=== PATIENT | female | born 1945 | race Caucasian/White ===

== ENCOUNTER 2018-07-14 18:52 | Inpatient (IN) ==
--- NOTE | 2018-07-14 19:43 | Diag Imaging Result Doc PS360 ---
CHEST-2 VIEWS - 07/14/2018 INDICATION: CP COMPARISON: None FINDINGS: The lungs are normally expanded and clear. Heart size and mediastinal contours are normal. No pneumothorax or pleural effusion. IMPRESSION: Negative exam. Electronically signed by Dusty Zaragoza 07/14/2018 7:40 PM
[2018-07-14 20:09] LABS: BASO# 0.05 X1000 (0.0-0.2); BASO% 0.4 % (0.0-0.8); EOS# 0.96 X1000 (0.0-0.7); EOS% 7.9 % (0.0-10.0); HEMATOCRIT 42.2 % (37.0-47.0); HEMOGLOBIN 13.4 g/dL (12.0-16.0); IMM GRAN# 0.03 X1000 (0.0-0.04); IMM GRAN% 0.2 % (0.0-0.5); INR 0.9; LYMPH# 1.91 X1000 (1.2-3.4); LYMPH% 15.8 % (20.5-51.1); MCH 28.3 PG (27-31); MCHC 31.8 g/dL (33-37); MONO# 0.77 X1000 (0.11-0.59); MONO% 6.4 % (1.7-9.3); MPV 10.7 FL (7.4-10.4); NEUT# 8.37 X1000 (1.4-6.5); NEUT% 69.3 % (42.2-75.2); PLT 307 X1000 (130-400); PROTIME 12.9 Seconds (11.0-16.0); RBC 4.74 XMIL (4.2-5.4); RDW 14.1 % (11.5-14.5); WBC 12.09 X1000 (4.8-10.8)
[2018-07-14 20:10] LABS: PTT 25.6 Seconds (22.3-41.8)
[2018-07-14] MEDS ORDERED: LABETALOL IV ONE (20:22)
[2018-07-14 20:24] LABS: AGAP 9; ALB/GLOB RATIO 1.8; ALBUMIN 3.9 g/dL (3.5-5.0); ALKALINE PHOSPHATASE 86 U/L (32-104); BUN 17 mg/dL (8-22); CALCIUM 9.8 mg/dL (8.8-10.2); CHLORIDE 104 mmol/L (98-107); CK PROFILE 27 U/L (24-173); COSMO 293; CREATININE 0.8 mg/dL (0.5-0.9); ESTIMATED GFR > 60; GLUCOSE 179 mg/dL (70-104); GOT 12 U/L (10-30); GPT 14 U/L (10-36); POTASSIUM 4.3 mmol/L (3.5-5.1); SODIUM 144 mmol/L (136-145); TCO2 31 mmol/L (25-35); TOTAL BILIRUBIN < 0.15 mg/dL (0.20-1.00); TOTAL PROTEIN 6.1 g/dL (6.3-8.3)
[2018-07-14] MEDS ORDERED: ZOFRAN IV ONE (20:25)
[2018-07-14] MEDS ORDERED: BREVIBLOC 2.5 GM/NS 2.5 GM/250 ML IV.SOLN IV SCH (20:45)
--- NOTE | 2018-07-14 21:30 | Diag Imaging Result Doc PS360 ---
CT ANGIOGRAM THORAX/ABD/PELVIS - 07/14/2018 INDICATION: rule out aortic dissection TECHNIQUE: Axial CT images were obtained after administering intravenous contrast. Three-dimensional angiographic images were generated. COMPARISON: None FINDINGS: The aorta is normal. The heart is normal in size and contour. There is a nodule in the right lobe of the thyroid measuring 1.5 cm. No adenopathy. The lungs are clear of infiltrate. There is a benign granuloma in the right lower lobe. Abdominal organs are all normal. Bones are intact. No bowel obstruction or inflammation. Normal appendix. Urinary bladder and rectum are normal. IMPRESSION: Negative exam. This exam was performed using automated exposure control, adjustment of mA or kV according to patient size, and/or use of iterative reconstruction technique Electronically signed by Dusty Zaragoza 07/14/2018 9:27 PM
[2018-07-14] MEDS ORDERED: NITROGLYCERIN TOP ONE ×2 (21:54→22:22)
[2018-07-14] MEDS ORDERED: VASOTEC IV ONE (22:30)
--- NOTE | 2018-07-14 22:57 | PROVIDER DOCUMENTATION ---
This chart was entered by Flavia Bedoya Scribe, acting as scribe for Zamzam Watts MD. HPI-Chest Pain - General Chief Complaint: Chest Pain Stated Complaint: PRESSURE IN CHEST, PAIN (L) ARM, NAUSEA Time Seen by Provider: 07/14/18 19:52 Source: patient Allergies/Adverse Reactions: Patient Allergies Allergy/AdvReac Type Severity Reaction Status Date / Time codeine Allergy NAUSEA/VOMI Verified 07/14/18 20:42 TING Home Medications: Home Medication List Medication Instructions Recorded Confirmed Last Taken Type Cholestyramine (with Sugar) 4 gm PO DAILY 07/14/18 07/14/18 Unknown History [Cholestyramine Packet] Clobetasol Propionate/Emoll 45 gm TOPICAL BID 07/14/18 07/14/18 Unknown History [Clobetasol Emollient 0.05% Crm] Glipizide 5 mg PO BID 07/14/18 07/14/18 Unknown History Metformin HCl [Fortamet] 1,000 mg PO DAILY 07/14/18 07/14/18 Unknown History Ropinirole HCl 1 mg PO DAILY 07/14/18 07/14/18 Unknown History Solifenacin Succinate [Vesicare] 5 mg PO DAILY 07/14/18 07/14/18 Unknown History - History of Present Illness-CP Nature of Presenting Problem: 73 yof presents to er w/co cp on and off for few months but constant today, substernal, pressure like, radiate to the back, 12/17, associated with sob, sweating and nausea for few days. pt denies vomiting and diarrhea. pt has hx of dm. Location: reports: substernal Review of Systems - Adult - REVIEW OF SYSTEMS - ADULT Constitutional: reports: no symptoms reported Eyes: reports: no symptoms reported Ears, Nose, Mouth & Throat: reports: no symptoms reported Cardiovascular: reports: see HPI, chest pain (substernal). denies: palpitations, poor circulation, syncope Respiratory: reports: see HPI, shortness of breath. denies: dyspnea on exertion, excessive sputum production, hemoptysis Gastrointestinal: reports: see HPI, nausea. denies: diarrhea, difficulty swallowing, vomiting Genitourinary: reports: no symptoms reported Musculoskeletal: reports: no symptoms reported Integumentary: reports: no symptoms reported Neurological: reports: no symptoms reported Psychiatric: reports: no symptoms reported Endocrine: reports: see HPI, excessive sweating. denies: change in skin pigment, increased thirst, polyuria Past History - Adult - PAST MEDICAL HISTORY-ADULT Review of Records: reports: Old Records Reviewed, Nursing Assessment Review, Medications Reviewed, Social history reviewed & non-contributory. Major Childhood Illnesses: reports: denies history Cardiovascular: reports: denies history Respiratory: reports: denies history Gastrointestinal: reports: denies history Obstetrical/Gynecological: reports: denies history Genitourinary: reports: denies history Musculoskeletal: reports: denies history Neurological: reports: denies history Endocrine/Immune: reports: Diabetes Diabetes Type: Type 2 Diabetes controlled by:: PO Meds (metformin) Other Conditions: reports: eczema - PRIOR SURGERIES/PROCEDURES Surgical/Procedure History: reports: breast (reduction) - IMMUNIZATION STATUS Childhood Immunizations: See Nurse Assessment Flu Vaccine: See Nurse Assessment - FAMILY HISTORY Family History: reviewed, not pertinent - SOCIAL HISTORY Smoking: non-smoker Substance Use: none/never Physical Exam-General - PHYSICAL EXAM-ADULT Initial Vital Signs Reviewed: Yes - CONSTITUTIONAL General Appearance: alert, no apparent distress - EYES Eyes: PERRL/EOMI - HEAD, EARS, NOSE, MOUTH & THROAT HENMT: normocephalic/atraumatic, moist mucous membranes, normal ENT inspection - NECK Neck: non-tender, full range of motion, supple, normal inspection - RESPIRATORY Respiratory: chest non-tender, lungs clear, normal breath sounds. negative: accessory muscle use, crackles, rales - CARDIOVASCULAR Cardiovascular: normal peripheral pulses, regular rate, rhythm, no edema, no gallop, no JVD, no murmur, other (Faint femoral pulse on the right side). negative: JVD, bradycardia, tachycardia - GASTROINTESTINAL (ABDOMEN) Abdominal Exam: normal bowel sounds, non tender, soft. negative: guarding, rigid, rebound - LYMPHATIC Lymphatic: no adenopathy - MUSCULOSKELETAL Back Exam: normal inspection, no CVA tenderness Extremity: normal range of motion, non-tender, normal inspection - SKIN Integumentary: normal color, normal turgor, warm/dry - NEUROLOGIC Neurologic: sign maker II-XII nml as tested, grossly normal, no motor/sensory deficits - PSYCHIATRIC Psych/Mental Status: normal mood/affect, normal thought content, normal thought process, oriented x 3 - HEART Score HEART Score: History: Highly Suspicious HEART Score: ECG: Normal HEART Score: Age: > or = 65 Years HEART Score: Risk Factors for Atherosclerotic Disease: > or = 3 Risk Factors or History of Atherosclerotic Disease HEART Score: Troponin: < or = Normal Limit (6) Total HEART Score:: 6 Progress - PLAN OF CARE/RESULTS Progress/Plan/Lab Results: Vital Signs - 8 hr 07/14/18 19:04 07/14/18 20:01 07/14/18 20:18 Temperature 97.9 F Pulse Rate 82 86 76 Respiratory Rate 18 18 15 Blood Pressure 214/98 227/115 276/138 O2 Sat by Pulse Oximetry 97 99 99 07/14/18 20:20 07/14/18 20:23 07/14/18 20:30 Temperature Pulse Rate 75 85 79 Respiratory Rate 19 18 14 Blood Pressure 225/109 O2 Sat by Pulse Oximetry 99 99 96 07/14/18 20:32 07/14/18 20:40 07/14/18 20:42 Temperature Pulse Rate 74 80 78 Respiratory Rate 19 24 18 Blood Pressure 206/83 190/80 O2 Sat by Pulse Oximetry 99 98 97 07/14/18 20:59 07/14/18 21:00 07/14/18 21:02 Temperature Pulse Rate 77 Respiratory Rate Blood Pressure 214/94 O2 Sat by Pulse Oximetry 92 L 96 97 07/14/18 21:07 07/14/18 21:10 07/14/18 21:14 Temperature Pulse Rate 80 78 78 Respiratory Rate 23 Blood Pressure 212/79 200/118 O2 Sat by Pulse Oximetry 95 97 99 07/14/18 21:17 07/14/18 21:20 07/14/18 21:24 Temperature Pulse Rate 78 76 74 Respiratory Rate 17 16 19 Blood Pressure 213/91 198/95 O2 Sat by Pulse Oximetry 97 97 07/14/18 21:25 07/14/18 21:30 07/14/18 21:32 Temperature Pulse Rate 90 76 73 Respiratory Rate 21 19 20 Blood Pressure 198/95 193/83 O2 Sat by Pulse Oximetry 97 96 96 07/14/18 21:40 07/14/18 21:47 07/14/18 21:50 Temperature Pulse Rate 74 76 82 Respiratory Rate 22 18 21 Blood Pressure 215/106 O2 Sat by Pulse Oximetry 100 97 98 07/14/18 21:53 07/14/18 21:58 07/14/18 22:00 Temperature Pulse Rate 74 75 74 Respiratory Rate 15 23 22 Blood Pressure 232/108 202/95 O2 Sat by Pulse Oximetry 97 98 99 07/14/18 22:02 07/14/18 22:10 07/14/18 22:17 Temperature Pulse Rate 72 70 74 Respiratory Rate 19 15 18 Blood Pressure 205/90 203/93 O2 Sat by Pulse Oximetry 98 97 97 07/14/18 22:20 07/14/18 22:30 07/14/18 22:32 Temperature Pulse Rate 75 78 74 Respiratory Rate 21 15 21 Blood Pressure 188/104 O2 Sat by Pulse Oximetry 97 97 98 07/14/18 22:40 07/14/18 22:47 Temperature Pulse Rate 81 75 Respiratory Rate 18 20 Blood Pressure 171/86 O2 Sat by Pulse Oximetry 97 99 Laboratory Results - last 24 hr 07/14/18 07/14/18 07/14/18 19:18 19:18 19:18 WBC 12.09 H RBC 4.74 Hgb 13.4 Hct 42.2 MCV 89.0 MCH 28.3 MCHC 31.8 L RDW Std Deviation 14.1 Plt Count 307 MPV 10.7 H Immature Gran % (Auto) 0.2 Neut % (Auto) 69.3 Lymph % (Auto) 15.8 L [place] % (Auto) 6.4 Eos % (Auto) 7.9 Baso % (Auto) 0.4 Immature Gran # (Auto) 0.03 Neut # (Auto) 8.37 H Lymph # (Auto) 1.91 [place] # (Auto) 0.77 H Eos # (Auto) 0.96 H Baso # (Auto) 0.05 PT INR PTT (Actin FS) Sodium 144 Potassium 4.3 Chloride 104 Carbon Dioxide 31 Anion Gap 9 BUN 17 Creatinine 0.8 Estimated GFR/1.73 m2 > 60 BUN/Creatinine Ratio 21 Glucose 179 H Calculated Osmolality 293 Calcium 9.8 Total Bilirubin < 0.15 L AST 12 ALT 14 Alkaline Phosphatase 86 Creatine Kinase 27 Troponin T Pnl-[id number]-Plltjmhjukb Pept 183 Total Protein 6.1 L Albumin 3.9 Globulin 2.2 Albumin/Globulin Ratio 1.8 07/14/18 07/14/18 19:18 19:18 WBC RBC Hgb Hct MCV MCH MCHC RDW Std Deviation Plt Count MPV Immature Gran % (Auto) Neut % (Auto) Lymph % (Auto) [place] % (Auto) Eos % (Auto) Baso % (Auto) Immature Gran # (Auto) Neut # (Auto) Lymph # (Auto) [place] # (Auto) Eos # (Auto) Baso # (Auto) PT 12.9 INR 0.90 PTT (Actin FS) 25.6 Sodium Potassium Chloride Carbon Dioxide Anion Gap BUN Creatinine Estimated GFR/1.73 m2 BUN/Creatinine Ratio Glucose Calculated Osmolality Calcium Total Bilirubin AST ALT Alkaline Phosphatase Creatine Kinase Troponin T < 0.010 Zee-Z-Husjbsfgjab Pept Total Protein Albumin Globulin Albumin/Globulin Ratio Orders Category Date Time Status Cardiac Monitoring DIRECTED Care 07/14/18 19:08 Active Oxygen Therapy- ED Nursing DIRECTED Care 07/14/18 19:08 Active Saline Loc NOW Care 07/14/18 19:08 Active CHEST-2 VIEWS [RAD] Stat Exams 07/14/18 19:[address] ANGIOGRAM THORAX/ABD/PELVIS [CT] Stat Exams 07/14/18 20:35 Completed CBC WITH ELECTRONIC DIFF [HEME] Stat Lab 07/14/18 19:18 Completed CK PROFILE [SP CHEM] Stat Lab 07/14/18 19:18 Completed COMPREHENSIVE METABOLIC PANEL [CHEM] Stat Lab 07/14/18 19:18 Completed PRO B-NATRIURETIC PEPTIDE Stat Lab 07/14/18 19:18 Completed PROTIME WITH INR [COAG] Stat Lab 07/14/18 19:18 Completed PTT [COAG] Stat Lab 07/14/18 19:18 Completed TROPONIN T Stat Lab 07/14/18 19:18 Completed Enalaprilat [Vasotec] Med 07/14/18 22:30 Discontinued 1.25 mg IV NOW ONE Esmolol 2.5 gm/Ns [Brevibloc 2.5 gm/Ns] Med 07/14/18 20:45 Discontinued 2.5 gm in 250 ml IV As Directed mls/hr Labetalol Med 07/14/18 20:22 Discontinued 10 mg IV NOW ONE Nitroglycerin Med 07/14/18 21:54 Discontinued 0.5 inch TOP NOW ONE Nitroglycerin Med 07/14/18 22:22 Discontinued 0.5 inch TOP NOW ONE Ondansetron [Zofran] Med 07/14/18 20:25 Discontinued 4 mg IV NOW ONE CP/SOB/Palp >45 yrs of Age Stat Oth 07/14/18 19:08 Ordered EKG [EKG] Stat Ther 07/14/18 19:08 Ordered Patient care assessment and plan discussed with the attending physician Dr. Zamarripa and he agree with plan as documented. Hx suspicious for aortic dissection with new onset high blood pressure. will do CTA protocol to rule out Aortic dissection Result Diagrams: 07/14/18 19:18 07/14/18 19:18 - REASSESSMENT Reassessment #1 Time Reassessed: 21:30 Status: improving (less chest pain but still have some pain.) - EKG 1 Time of EKG reading by physician:: 19:07 (inferior infarct age undetemined) EKG Read and Signed by:: Alejandro Zamarripa (anterior infarct age undetermined ) EKG Interpretation (*Must complete 3 of following elements*): Abnormal Rate: 78 Rhythm: NSR QRS: LVH (min voltage for lvh, may be normal variant) NM Interval: normal - CONSULTS/PCP/HOSPITALIST Notification #1 *Consult/PCP/Hospitalist*: Dr. Corbin Time Discussed: 21:51 Consult Disposition: Admit (Accepted.) Departure - Departure Date of Disposition Decision: 07/14/18 Time of Disposition Decision: 21:50 DIAGNOSIS: Hypertensive emergency Chest pain Qualifiers: Chest pain type: other chest pain Qualified Code(s): R07.89 - Other chest pain; R07.8 - Other chest pain Disposition: ADMITTED INPATIENT 09 Certified Medical Emergency: Emergent Condition: Stable Referrals and Follow-Ups: Arnol Black MD [Primary Care Provider] - - Critical Care Note This patient required my direct & personal management of CC.: No Attestation - Physician/ NANCI Attestation Patient care was provided by Advanced Practice Provider:: No The physician spent face to face time with patient:: Yes Advanced Practice Provider documentation review:: Supervising physician onsite and consulted in the evaluation and care of this patient. The physician did have a face to face encounter with the patient. This chart was documented by the indicated scribe, (Flavia Bedoya Scribe) and accurately reflects the services I performed and decisions made by me, Zamzam Neely MD, as attested by the provider's signature.
[2018-07-15] MEDS ORDERED: ZOFRAN IV PRN (00:03)
[2018-07-15] MEDS ORDERED: VASOTEC IV PRN (00:03)
[2018-07-15] MEDS: LOPRESSOR PO SCH ×3 (00:28→20:48)
--- NOTE | 2018-07-15 01:28 | HISTORY AND PHYSICAL ---
PRIMARY CARE PHYSICIAN: Dr. Arnol Black. CHIEF COMPLAINT: Chest pain. HISTORY OF PRESENTING ILLNESS: A 73-year-old female with a history of diabetes mellitus type 2 presented to emergency department with several days history of having chest pain. She described it as pressure like and was short of breath with pain radiating to left upper extremity. The patient states that the symptoms were not subsiding and subsequently had come to the emergency department. In the ED, she was evaluated. She was noted to have markedly elevated blood pressure. She was given appropriate antihypertensive agents. However, she still continued to have chest discomfort. Due to her presenting symptoms and suspicion of unstable angina, it was thought that she would need admission for further management. At the time of my examination, she had denied any headache, fever, chills, hemoptysis, melena or weight changes, but complained of chest pain, nausea and shortness of breath. PAST MEDICAL HISTORY: Includes diabetes mellitus type 2. PAST SURGICAL HISTORY: Hysterectomy, breast reduction. ALLERGIES: Codeine. CURRENT MEDICATIONS: Include the following, glipizide 5 mg p.o. b.i.d., metformin 1000 mg p.o. daily, Requip 1 mg p.o. daily, VESIcare 5 mg p.o. daily. SOCIAL HISTORY: No history of smoking, alcohol or illicit drug use. FAMILY HISTORY: No history of coronary disease. REVIEW OF SYSTEMS: Fourteen point review of systems listed as in HPI. Other systems negative. PHYSICAL EXAMINATION: GENERAL: Cooperative, friendly female. She is resting more comfortably now. VITAL SIGNS: Temperature 97.9 degrees, pulse 82, respiration 18, blood pressure 214/98. HEENT: Atraumatic, normocephalic. Extraocular movements intact. PERRLA. NECK: No masses. CHEST: Clear to auscultation. CARDIOVASCULAR: Regular rate and rhythm. S1, S2. ABDOMEN: Soft, positive bowel sounds. EXTREMITIES: No edema. NEUROLOGIC: She is awake, alert, oriented x3. GENITOURINARY: No bladder distention. SKIN: Warm. LABORATORIES AND STUDIES: WBCs 12.09, hemoglobin 13.4, hematocrit 42.2, platelets 307,000. Sodium 144, potassium 4.3, chloride 104, CO2 is 31, BUN is 17, creatinine 0.8, glucose is 179. Troponin 0.010. Chest x-ray is negative. CT angiogram was also negative. ASSESSMENT: A 73-year-old female with a history of diabetes mellitus type 2 who had presented to emergency department with several days history of having persistent chest pain. She was evaluated in the emergency department. Her blood pressure was markedly elevated. It was suspected that she had possible unstable angina. Subsequently, she will need admission for further management. 1. Unstable angina. 2. Hypertensive urgency. 3. Diabetes mellitus type 2. PLAN: 1. We will admit patient to [facility]. 2. Continue with cardiac workup. Check EKG, serial cardiac enzymes. Have patient continue on aspirin. We will use sublingual nitroglycerin and morphine p.r.n. chest pain. 3. We will consult Cardiology. 4. We will continue with appropriate antihypertensive agents and monitor blood pressure closely. 5. We will monitor blood glucose and put patient on sliding scale insulin regimen. 6. Put patient on DVT prophylaxis with SCDs. 7. We will continue to follow, and reassess and make further recommendation based on patient's clinical course. cc: MD Arnol Boss MD
[2018-07-15 05:29] LABS: BASO# 0.03 X1000 (0.0-0.2); BASO% 0.3 % (0.0-0.8); EOS# 1.43 X1000 (0.0-0.7); EOS% 12.3 % (0.0-10.0); HEMATOCRIT 39.2 % (37.0-47.0); HEMOGLOBIN 12.6 g/dL (12.0-16.0); IMM GRAN# 0.03 X1000 (0.0-0.04); IMM GRAN% 0.3 % (0.0-0.5); LYMPH# 2.42 X1000 (1.2-3.4); LYMPH% 20.9 % (20.5-51.1); MCH 28.8 PG (27-31); MCHC 32.1 g/dL (33-37); MCV 89.5 FL (81-99); MONO# 0.77 X1000 (0.11-0.59); MONO% 6.6 % (1.7-9.3); MPV 10.6 FL (7.4-10.4); NEUT# 6.92 X1000 (1.4-6.5); NEUT% 59.6 % (42.2-75.2); PLT 302 X1000 (130-400); RBC 4.38 XMIL (4.2-5.4); RDW 14.2 % (11.5-14.5)
[2018-07-15 05:54] LABS: AGAP 12; BUN 15 mg/dL (8-22); CALCIUM 9.6 mg/dL (8.8-10.2); CHLORIDE 106 mmol/L (98-107); COSMO 293; CREATININE 0.8 mg/dL (0.5-0.9); ESTIMATED GFR > 60; GLUCOSE 156 mg/dL (70-104); POTASSIUM 4.7 mmol/L (3.5-5.1); SODIUM 145 mmol/L (136-145); TCO2 27 mmol/L (25-35)
[2018-07-15] MEDS: HUMULIN R SUBQ SCH ×4 (06:15→20:48)
--- NOTE | 2018-07-15 07:25 | PROGRESS NOTE ---
DATE: 07/15/2018 HISTORY: This is a patient of mine, a 73-year-old with a history of diabetes mellitus type 2. She does have a family history of coronary artery disease. Her brother recently had, I think, bypass surgery. I think maybe her brother's son has had a heart attack. She started having a pressure-like sensation. She ate about 1 o'clock yesterday afternoon and then took a nap. She woke up about 5 o'clock or so. She noticed some pain. It felt like pressure in the middle of her chest, short of breath, radiating to the left upper extremity. She had some radiation between her shoulder blades and a good deal of nausea. She has had an episode like this before. She still has her gallbladder. Her enzymes were negative x2. She had a negative CT scan of her thorax, abdomen, and pelvis. Chest x-ray, negative exam. Looking for her EKGs, I do not see them. PHYSICAL EXAMINATION: Temperature is 97.7 degrees, pulse 70, respirations 14, blood pressure 150/80. Pupils were equal and round. Lungs were clear in all lung lawrence. Cardiovascular Examination: Regular rhythm and rate without murmur or S3. Abdomen is soft. Skin is warm and dry. Yesterday, blood pressure was 214/98 and blood pressures were high. LAB: White count 11,600, hematocrit is 39, platelet count 302,000. Sodium 145, potassium 4.7, chloride 106, BUN 15, creatinine 0.8. AST 12, ALT 14, alkaline phosphatase 86. Troponin less than 0.01. TSH is 5.67. Chest x-ray was negative. ASSESSMENT AND PLAN: 1. Chest pain with a strong family history of risk factors. Her cardiac enzymes are negative. Cardiology to evaluate. I think she is going to need a myocardial perfusion scan or GXT. CTA of the chest, heart was normal size and contour. It is not reported a lot of calcification. I think we also need to look at her gallbladder so she will get an ultrasound of her gallbladder as well. Blood pressure appears under better control. We will continue to follow her pattern of sugars. She is on Vasotec 1.25 mg intravenous every 6 hours as needed and labetalol, she was given one dose yesterday in the emergency room, and metoprolol 25 mg every 12 hours, aspirin 325 mg a day. 2. She also has a history of restless legs syndrome. She is getting Requip 1 mg daily. cc: Arnol Black MD
[2018-07-15] MEDS: REQUIP PO SCH (08:32)
[2018-07-15] MEDS ORDERED: ASPIRIN PO SCH (09:00)
--- NOTE | 2018-07-15 09:52 | Diag Imaging Result Doc PS360 ---
US ABDOMEN-COMPLETE - 07/15/2018 INDICATION: loof at gall bladder COMPARISON: CT 07/14/2018 FINDINGS: The liver is very fatty. No liver masses or biliary dilation. The gallbladder, pancreas, spleen, and both kidneys are normal. Common bile duct measures 3 mm. Aorta, IVC, and main portal vein are patent. IMPRESSION: Fatty liver. Normal gallbladder. Electronically signed by Dusty Zaragoza 07/15/2018 9:50 AM
[2018-07-15] MEDS ORDERED: APRESOLINE IV PRN (13:44)
--- NOTE | 2018-07-15 14:09 | CARDIOLOGY CONSULTATION ---
DATE: 07/15/2018 CHIEF COMPLAINT ON PRESENTATION: Chest and abdominal pain. HISTORY OF PRESENT ILLNESS: Ms. Rasheed is a 73-year-old female with a history of diabetes who presented for an episode of chest discomfort that began at around 4:30 yesterday. She ate lunch around 1:00. She did not eat anything that she thought was particularly reflux provoking. She had been treated with reflux but she been taking p.r.n. PPIs very sporadically. She had no exertional component to it. It felt like a tight burning symptom located in her abdomen, radiating up with some nausea. Again, no exertional component. No orthopnea. No shortness of breath. PAST MEDICAL HISTORY: Significant for type 2 diabetes. SOCIAL HISTORY: No tobacco, alcohol, or illicit drugs. FAMILY HISTORY: There is no family history of early coronary artery disease in her first-degree relatives. REVIEW OF SYSTEMS: A 10 system review of systems is negative except for those things mentioned in the HPI. PHYSICAL EXAMINATION: Vital Signs: She is afebrile, heart rate is 70, her blood pressure is 152/58. Her presenting blood pressure was 214/98. She, for the first several hours of her at admission, had persistent blood pressures in the 190s to 220 range. General: She is in no acute distress. HEENT: Oropharynx is moist. Normal dentition. Eye examination shows pink conjunctivae and white sclerae. Neck: Examination shows no obvious thyromegaly or thyroid tenderness. Cardiovascular: She sounds to be in a regular rate and rhythm. She has no obvious murmurs. She has no S3. She has no lower extremity edema. Chest Examination: Sounds clear bilaterally. She has no increased work of breathing. Abdomen: Soft, nontender, nondistended. She has no obvious organomegaly. Skin Examination: Warm and dry throughout without any rashes. Neurological: She is moving all extremities well. She has no lateralizing deficits. Psychiatric: Alert and oriented. Normal mood and affect. PERTINENT DATA: Her EKG reviewed by me shows sinus rhythm, no ischemic changes, rate of [address] minute[address] Her [address] scan of her thorax and abdomen was unremarkable for any abnormalities. She had an abdominal ultrasound that showed a fatty liver with normal gallbladder. Her lab data shows a white count of 11.6, hematocrit 39, platelet count of 302,000. Her sodium is 145, potassium is 4.7, BUN 15, creatinine 0.8. She had normal cardiac enzymes. Her proBNP was 183. ASSESSMENT: Ms. Rasheed is a 73-year-old female who presented with chest pain. PLAN: She has a EROS score of 2. We will proceed with a noninvasive evaluation. I have initiated an GWEN inhibitor in this patient and reduced her aspirin dose to 81 mg. I have discontinued her p.r.n. Vasotec and placed on p.r.n. hydralazine. We will check a lipid profile in the morning. We will also check an echocardiogram in the morning. cc: MD Arnol Patel MD
[2018-07-15] MEDS: PRINIVIL PO SCH (20:48)
[2018-07-16 05:52] LABS: CHOLESTEROL 180 mg/dL (0-200); HDL 37 mg/dL (45-65); LDL 108 mg/dL; TRIGLYCERIDES 175 mg/dL (35-135); VLDL 35 mg/dL
[2018-07-16] MEDS: HUMULIN R SUBQ SCH ×2 (06:28→11:51)
--- NOTE | 2018-07-16 07:00 | EKG Report ---
Test Performed on : 07/14/2018 7:00:45 PM Test Reason : CP Blood Pressure : / mmHG Vent. Rate : 078 BPM Atrial Rate : 078 BPM P-R Int : 152 ms QRS Dur : 068 ms QT Int : 392 ms P-R-T Axes : 064 -20 053 degrees QTc Int : 446 ms Normal sinus rhythm. Minimal voltage criteria for LVH, may be normal variant Inferior infarct , age undetermined Anterior infarct , age undetermined Abnormal ECG No previous ECGs available Unconfirmed Result
[2018-07-16] MEDS ORDERED: LEXISCAN ONE (08:32)
[2018-07-16] MEDS ORDERED: ASPIRIN PO SCH (09:00)
--- NOTE | 2018-07-16 10:55 | PROGRESS NOTE ---
DATE: 07/16/2018 SUBJECTIVE: Ms. Rasheed had no further chest pain, felt pretty good, had a pretty good night. She is scheduled to get a [employer] GXT this morning. OBJECTIVE: Vital signs: Remains afebrile, temperature 97.5 degrees, pulse 65, respirations 17, blood pressure 146/57. HEENT: Pupils are equal and round. Lungs: Clear in all lung lawrence. Cardiovascular: Regular rhythm and rate without murmur or S3. Abdomen: Soft. Skin: Warm and dry. LABORATORY DATA: Blood sugar 161, 198, 157. ASSESSMENT AND PLAN: 1. She had a EROS score of 2. Proceed with noninvasive evaluation. Initiated GWEN inhibitor. Reduced her aspirin down to 81 mg per Cardiology. Getting Vasotec p.r.n. and hydralazine p.r.n. 2. Lipid profile: Triglyceride 175, LDL was 108, HDL was 37. 3. Troponin less than 0.01. 4. abdominal ultrasound. She had fatty liver. Normal gallbladder. No sign of biliary pathology at this point. 5. She had a chest, abdomen, and pelvis CT angiogram, and it was negative. We will see what her myocardial perfusion scan shows and if negative, she can probably go home today. cc: Arnol Black MD MTDD
[2018-07-16] MEDS: PRINIVIL PO SCH (11:51)
[2018-07-16] MEDS: LOPRESSOR PO SCH (11:51)
[2018-07-16] MEDS: REQUIP PO SCH (11:51)
--- NOTE | 2018-07-16 14:14 | CARDIOLOGY PROGRESS NOTE ---
DATE: 07/16/2018 SUBJECTIVE: Ms. Rasheed has not had any pain lately. She has no shortness of breath. OBJECTIVE: Vital signs: Afebrile. Heart rate 74, blood pressure 152/50. General: She is in no acute distress. Cardiovascular: She sounds to be in a regular rate and rhythm. She has no murmurs. She has no S3. She has no lower extremity edema. Chest: Clear bilaterally. She has no increased work of breathing. Abdomen: Soft, nontender. PERTINENT DATA: Her LDL was 108. She has no new chemistry data or CBC data. Review of her echo and nuclear scan demonstrate a normal ejection fraction, normal perfusion, really no significant abnormalities. ASSESSMENT: Ms. Rasheed is a 73-year-old female who presented with chest pain. PLAN: She has no significant perfusion defects on her stress. Her echo looks unremarkable. For now, we will continue with medical treatment. Certainly, the source of her pain could have been GI in origin. She had been taking p.r.n. Prevacid for this. I would likely switch her over to p.r.n. H2 anne as she has episodes around once per week. Lisinopril was added to her medications including metoprolol at 25 b.i.d. Her heart rate certainly seems to be a bit on the lower range, in the 60s, making adjustment of the metoprolol difficult. Could consider escalation of the lisinopril but her blood pressure does seem to have overall come down from the admission blood pressure. I did initiate statin therapy which I would continue her on. I will make a follow up with me in the office within the next month. cc: MD Arnol Patel MD
--- NOTE | 2018-07-16 15:01 | Diag Imaging Result Document ---
PROCEDURE NAME: MYOCARDIAL PERF SCAN, STR/REST - 07/16/2018 SUMMARY: The patient was administered 14.7 mCi of technetium-99m sestamibi, after which resting cardiac images were obtained. The patient was subsequently administered Lexiscan 0.4 mg intravenously after which the heart rate went from 69 beats per minute to 94 beats per minute. The blood pressure went from 160/77 to 179/73. With Lexiscan, the patient reported moderate chest pressure which resolved spontaneously. Following the administration of Lexiscan, the patient was administered 43.2 mCi of technetium-99m sestamibi after which gated stress cardiac images were obtained. Baseline ECG demonstrates sinus rhythm and nonspecific T-wave abnormality. With Lexiscan, there were no diagnostic ST-segment changes. SPECT images were reconstructed in the short, horizontal, vertical and long axis. Review of these images demonstrated homogeneous uptake of radiopharmaceutical on both stress and resting images. Gated images demonstrate a calculated left ventricular ejection fraction of 74% with symmetrical wall motion/thickening. CONCLUSIONS: 1. Adequate response to Lexiscan. 2. Clinically, the patient reported moderate chest pressure with Lexiscan. 3. Electrocardiographically, there were no diagnostic ST-segment changes on ECG following administration of Lexiscan. 4. Normal Lexiscan sestamibi images. cc: MD Tomi Beck MD
--- NOTE | 2018-07-16 16:14 | DISCHARGE SUMMARY ---
ADMISSION DATE: 07/14/2018 DISCHARGE DATE: 07/16/2018 HISTORY OF PRESENT ILLNESS: She is a patient of janet, Dr. Arnol Black. Presented with chest pain. A 73-year-old female with history of diabetes mellitus type 2 presented to the emergency room on 07/14/2018 with several day history of having chest pain. She describes it like pressure but short of breath and pain radiating some into her left shoulder and between her shoulder blades. The patient states that she had symptoms which did not subside. Subsequently came to the emergency room. She noted having markedly elevated blood pressure, given appropriate antihypertensive agents. However, she still continued to have chest discomfort and concern about possible unstable angina. PAST MEDICAL HISTORY: Diabetes mellitus. PAST SURGICAL HISTORY: Hysterectomy and breast reduction. HOSPITAL COURSE: Her cardiac enzymes were negative. Her EKG did not show any suspicious ST- segment changes and Cardiology evaluated, Dr. Tomi Woodard. She had a EROS score of 2 and so did noninvasive studies. Initiated GWEN inhibitor and reduced her aspirin 81 mg. She underwent myocardial perfusion scan. Adequate response to Lexiscan. Clinically the patient reported moderate chest pressure with Lexiscan. Echocardiography, there was no diagnostic ST-segment changes. She had normal Lexiscan Sestamibi images. No sign of ischemia. Blood pressures remained well controlled and she wanted to go home. We will discharge her home. We will continue aspirin 81 mg a day, Lipitor 40 mg a day, Prinivil 10 mg twice a day, Requip 1 mg daily, keep her on Lopressor 25 mg q.12 h. Follow up in my office in a couple weeks. cc: Arnol Black MD
[2018-07-16 16:56] VITALS: BP 148/62
[2018-07-16] MEDS ORDERED: LIPITOR PO SCH (21:00)
--- NOTE | 2018-07-19 13:52 | ECHO REPORT ---
ORDER DATE: 07/16/2018 PROCEDURE: Echocardiogram. INDICATION: Chest pain. FINDINGS: 1. Right atrium appears normal in size. 2. No significant tricuspid regurgitation. 3. Normal RV size and systolic function. 4. No significant pulmonic insufficiency. 5. Mild left atrial enlargement with a dimension of 4.5 cm and a volume index of 28. 6. No mitral valve prolapse. No significant mitral regurgitation. 7. Normal LV size, end-diastolic dimension of 4.7. Mild left ventricular hypertrophy. The posterior and interventricular septal wall thickness of 1.3 and 1.1 cm respectively. Normal to hyperdynamic LV systolic function with an estimated EF greater than 70%. 8. Aortic valve opens well. There is no evidence of stenosis or insufficiency. 9. Aorta appears normal in visualized segments. 10. No pericardial effusion seen. cc: MD Arnol Patel MD
== END 2018-07-16 17:00 | disposition home or self-care (01) | DRG 305 ==
LOC: ED 18:52 → 3S 23:32 → SUATTDRO 23:32 → 3S 07-15 15:59
PROVIDERS: ADMIT Emergency Medicine; ATTEND Emergency Medicine
CPT/HCPCS: 71020; 71046; 71275; 74174; 76700; 78452; 80048; 80053; 80061; 82550; 82948; 83880; 84443; 84484; 85025; 85610; 85730; 93005; 93017; 93306; 94761; 96365; 96366; 96375; 99285; A9270; A9500; C8929; J0360; J2405; J2785; Q9957; Q9967; XXXXX